=== PATIENT | female | born 1990 | race Caucasian/White ===

== ENCOUNTER 2022-11-05 15:06 | Outpatient (CLI) | payer OTHER, SELFPAY ==
[2022-11-08 03:58] LABS: Progesterone 10.6 ng/mL (***)
== END 2022-11-05 15:07 | disposition home or self-care (01) ==
PROVIDERS: Visit Provider Student in an Organized Health Care Education/Training Program
DX: O20.0 Threatened abortion (principal); Z3A.00 Weeks of gestation of pregnancy not specified
CPT/HCPCS: 36415; 84144; 84702; 86850; 86900; 86901

== ENCOUNTER 2022-11-07 10:23 | Outpatient (CLI) | payer OTHER, SELFPAY ==
[2022-11-11 03:55] LABS: Progesterone 10.4 ng/mL (***)
== END 2022-11-07 10:24 | disposition home or self-care (01) ==
LOC: ANHLAB 10:25
PROVIDERS: Visit Provider Student in an Organized Health Care Education/Training Program
DX: O20.0 Threatened abortion (principal); Z3A.00 Weeks of gestation of pregnancy not specified
CPT/HCPCS: 36415; 84144

== ENCOUNTER 2022-11-11 09:16 | Outpatient (CLI) | payer OTHER, SELFPAY | END 2022-11-11 09:17 | disposition home or self-care (01) | LOC: ANHLAB 09:19 | PROVIDERS: Visit Provider Student in an Organized Health Care Education/Training Program | DX: O20.0 Threatened abortion (principal) | CPT/HCPCS: 36415; 84702 ==

== ENCOUNTER 2022-11-27 11:42 | Outpatient (CLI) | payer OTHER, SELFPAY ==
[2022-11-27 12:14] LABS: Basophils Absolute Auto 0.1 K/mm3 (0.0-0.1); Basophils Percent Auto 0.5 % (0.2-1.2); Eosinophils Absolute Auto 0.1 K/mm3 (0-0.3); Eosinophils Percent Auto 1.4 % (0-4.4); Hematocrit 37.8 % (37.0-47.0); Hemoglobin 12.9 g/dL (12.0-15.0); Immature Granulocyte Absolute 0.06 K/mm3 (0.00-0.031); Immature Granulocyte Percent A 0.7 % (0-0.5); Lymphocytes Absolute Auto 2.28 K/mm3 (0.9-3.2); Mean Corpuscular HGB Conc 34.1 g/dl (32-36); Mean Corpuscular Hemoglobin 31.9 pg (26-34); Mean Corpuscular Volume 93.3 fl (80-100); Monocytes Absolute Auto 0.4 K/mm3 (0.1-0.6); Monocytes Percent Auto 4.3 % (2.6-8.5); Neutrophils Absolute Auto 6.2 K/mm3 (1.3-6.7); Neutrophils Percent Auto 68.1 % (45.5-73.1); Platelet Count Result 219 k/mm3 (150-375); Red Blood Count 4.05 M/mm3 (4.2-5.4); Red Cell Distribution Width 12.7 % (11.5-14.5); White Blood Count 9.1 K/mm3 (4.5-10.0)
[2022-11-27 12:58] LABS: Hepatitis B Surface Antigen Negative (Negative)
[2022-11-27 13:05] LABS: HIV 1/2 Ab P24 Ag Result Negative (Negative)
[2022-11-28 13:22] LABS: Rapid Plasma Reagin Non-Reactive (NonReactive)
[2022-12-01 08:54] LABS: CMV IgG Antibody <0.60 U/mL (<0.60)
[2022-12-09 19:55] LABS: CF Result NEGATIVE (NEGATIVE); Ethnicity W
[2022-12-10 14:15] LABS: SMA 2.0 RISK VARIANT NOT DETECTED
[2022-12-15 15:10] LABS: SMA Results Received Yes
== END 2022-11-27 11:43 | disposition home or self-care (01) ==
PROVIDERS: PCP Internal Medicine; Visit Provider Obstetrics & Gynecology
DX: Z34.90 Encounter for supervision of normal pregnancy, unspecified, unspecified trimester (principal)
CPT/HCPCS: 36415; 81220; 81329; 85025; 86592; 86644; 86703; 86747; 86762; 86787; 86850; 86900; 86901; 87086; 87088; 87340; G0432

== ENCOUNTER 2022-12-05 23:32 | Emergency (ER) | payer OTHER, SELFPAY ==
[2022-12-05 23:38] VITALS: BP 143/89; PULSE 113; RESP 14; TEMP 36.9; O2SAT 100
[2022-12-06 01:14] VITALS: BP 130/81; PULSE 102; RESP 20; TEMP 36.8; O2SAT 100
[2022-12-06 02:29] LABS: Basophils Percent Auto 0.5 % (0.2-1.2); Eosinophils Absolute Auto 0.1 K/mm3 (0-0.3); Eosinophils Percent Auto 1.3 % (0-4.4); Hematocrit 35.7 % (37.0-47.0); Hemoglobin 12.3 g/dL (12.0-15.0); Immature Granulocyte Absolute 0.02 K/mm3 (0.00-0.031); Immature Granulocyte Percent A 0.2 % (0-0.5); Lymphocytes Absolute Auto 1.64 K/mm3 (0.9-3.2); Lymphocytes Percent Auto 19.5 % (18.3-44.2); Mean Corpuscular HGB Conc 34.5 g/dl (32-36); Mean Corpuscular Hemoglobin 32.1 pg (26-34); Mean Corpuscular Volume 93.2 fl (80-100); Mean Platelet Volume 10.1 fl (7.4-10.4); Monocytes Absolute Auto 0.6 K/mm3 (0.1-0.6); Monocytes Percent Auto 7.1 % (2.6-8.5); Neutrophils Percent Auto 71.4 % (45.5-73.1); Platelet Count Result 201 k/mm3 (150-375); Red Blood Count 3.83 M/mm3 (4.2-5.4); Red Cell Distribution Width 12.7 % (11.5-14.5); White Blood Count 8.4 K/mm3 (4.5-10.0)
[2022-12-06 03:00] VITALS: BP 106/62; PULSE 82; RESP 18; O2SAT 100
--- NOTE | 2022-12-06 03:15 | ED.GENADULT ---
HPI - General Adult General Chief complaint: Vaginal Bleeding Stated complaint: 10 weeks peg, vag bleeding Time Seen by Provider: 12/06/22 01:23 History of Present Illness HPI narrative: Patient 32-year-old female who presents to Emergency Department with a chief complaint of vaginal bleeding. Patient reports that she is currently approximately 10 weeks and started having bleeding this evening patient states that she used a tampon and also had to use a pad the patient reports that this is her first and she passed told that she has a subchorionic hemorrhage. Patient states she believes she is Rh+ Related Data Home Medications Medication Instructions Recorded Confirmed ferrous sulfate 220 mg (44 mg 110 mg PO DAILY 11/26/22 iron)/5 mL oral elixir vitamin-ferrous fumarate 1 cap PO DAILY 11/26/22 65 mg iron-folic acid 1 mg capsule Allergies Allergy/AdvReac Type Severity Reaction Status Date / Time amoxicillin Allergy Mild Rash Verified 12/06/22 01:19 Review of Systems Review of Systems: A 10 system review of systems was completed on the patient and is negative except for what is stated in the HPI. Nursing and ancillary documentation was reviewed. [facility] Past Medical History Medical History Abnormal Pap smear of cervix 07/04/13 ASCUS , +HPV Frequent headaches HPV in female Vertigo Surgical History Surgical History History of colposcopy with cervical biopsy (07/20/13) LGSIL, MINH I Family History Family History Grandparent Heart disease maternal grandfather Diabetes mellitus maternal grandfather Social History Social History Smoking status: Never smoker Alcohol intake: former Alcohol use details: 2 per month Substance use: former Substance use type: does not use and marijuana Last use: 09/2022 Living arrangements: other Additional living arrangements comments: Occupation/Education: 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 HEAD: Normocephalic, atraumatic. EYES: PERRLA and EOMI. ENT: Nares clear, no rhinorrhea or epistaxis. Mucous membranes moist. NECK: Supple. CHEST: Clear to auscultation. No respiratory distress. HEART: Regular rate and rhythm. No murmur heard. Normal peripheral pulses. ABDOMEN: Soft, nontender, nondistended, normal active bowel sounds. EXTREMITIES: Normal range of motion. No edema. : There is a small amount of blood in the vaginal vault the cervix is closed SKIN: Warm, dry, no rash. NEURO: No focal deficits. Alert and oriented x3. PSYCH: Normal mood and affect. Course Vital Signs Vital signs: Vital Signs Temperature 36.9 C 12/05/22 23:38 Pulse Rate 113 H 12/05/22 23:38 Respiratory Rate 14 12/05/22 23:38 Blood Pressure 143/89 H 12/05/22 23:38 Pulse Oximetry 100 12/05/22 23:38 Oxygen Delivery Room Air 12/05/22 23:38 Temperature 36.8 C 12/06/22 01:14 Pulse Rate 102 H 12/06/22 01:14 Respiratory Rate 20 12/06/22 01:14 Blood Pressure 130/81 12/06/22 01:14 Pulse Oximetry 100 12/06/22 01:14 Oxygen Delivery Room Air 12/05/22 23:38 Procedures Other Procedure Procedure 1: Other Procedure: Bedside limited ultrasound was performed by me using transabdominal technique the intrauterine was visualized positive cardiac activity was present Medical Decision Making MDM Narrative Medical decision making narrative: Differential diagnosis include mis
[2022-12-06 03:45] VITALS: BP 112/72; PULSE 86; RESP 16; O2SAT 100
== END 2022-12-06 04:15 | disposition home or self-care (01) ==
PROVIDERS: Emergency Provider Emergency Medicine; PCP Obstetrics & Gynecology
DX: O20.0 Threatened abortion (principal); Z3A.10 10 weeks gestation of pregnancy
CPT/HCPCS: 36415; 84702; 85025; 85461; 86850; 86900; 86901; 99283

== ENCOUNTER 2023-04-14 07:51 | Outpatient (CLI) | payer OTHER, SELFPAY ==
[2023-04-14 09:54] LABS: Hematocrit 34.8 % (37.0-47.0); Hemoglobin 11.5 g/dL (12.0-15.0); Mean Corpuscular Hemoglobin 32.7 pg (26-34); Mean Corpuscular Volume 98.9 fl (80-100); Mean Platelet Volume 10.5 fl (7.4-10.4); Platelet Count Result 186 k/mm3 (150-375); Red Blood Count 3.52 M/mm3 (4.2-5.4); Red Cell Distribution Width 13.4 % (11.5-14.5); White Blood Count 9.1 K/mm3 (4.5-10.0)
[2023-04-14 09:59] LABS: Glucose 1 Hour PP 50gm Dose 131 mg/dL
[2023-04-14 10:42] LABS: HIV 1/2 Ab P24 Ag Result Negative (Negative)
== END 2023-04-14 07:52 | disposition home or self-care (01) ==
PROVIDERS: PCP Obstetrics & Gynecology; Visit Provider Student in an Organized Health Care Education/Training Program
DX: Z34.90 Encounter for supervision of normal pregnancy, unspecified, unspecified trimester (principal)
CPT/HCPCS: 36415; 82947; 85027; 86703; G0432

== ENCOUNTER 2023-06-02 17:55 | Inpatient (IN) | payer OTHER, SELFPAY ==
[2023-06-02] VITALS (13 sets, daily range): BP systolic 95–126; BP diastolic 54–90; PULSE 87–109; TEMP 36.4; BMI 32.4
[2023-06-02] MEDS: BETAMETHASONE SOD PHOS/ACETATE 30 MG/5 ML VIAL 12 MG IM (19:10)
[2023-06-02 19:33] LABS: Basophils Percent Auto 0.3 % (0.2-1.2); Eosinophils Absolute Auto 0.1 K/mm3 (0-0.3); Eosinophils Percent Auto 0.8 % (0-4.4); Hematocrit 35.4 % (37.0-47.0); Hemoglobin 11.9 g/dL (12.0-15.0); Immature Granulocyte Absolute 0.09 K/mm3 (0.00-0.031); Immature Granulocyte Percent A 0.8 % (0-0.5); Lymphocytes Absolute Auto 1.74 K/mm3 (0.9-3.2); Lymphocytes Percent Auto 15.2 % (18.3-44.2); Mean Corpuscular HGB Conc 33.6 g/dl (32-36); Mean Corpuscular Hemoglobin 32.2 pg (26-34); Mean Corpuscular Volume 95.9 fl (80-100); Mean Platelet Volume 10.4 fl (7.4-10.4); Monocytes Absolute Auto 0.5 K/mm3 (0.1-0.6); Monocytes Percent Auto 4.5 % (2.6-8.5); Neutrophils Percent Auto 78.4 % (45.5-73.1); Platelet Count Result 202 k/mm3 (150-375); Red Blood Count 3.69 M/mm3 (4.2-5.4); White Blood Count 11.5 K/mm3 (4.5-10.0)
[2023-06-02] MEDS: ceFAZolin 2 GM/D5W 50 ML 2 GM/50 ML BAG IVPB (19:53)
[2023-06-02] MEDS: LACTATED RINGERS 1,000 ML 125 ML IV CONT (19:54)
--- NOTE | 2023-06-02 20:18 | WPDANESEPPF ---
Anes - Initial Pre Proc Eval Procedure: Labor epidural Date/Time: 06/02/23 20:18 Surgeon: Bob Correa MD Pre Op Diagnosis: Labor pain Pre Op Diagnosis: Leaking Patient Data Age: 33 Gender: F Height: 1.57 m Weight: 80.5 kg Last Vital Signs Pulse 98 06/02/23 19:44 BP 121/90 06/02/23 19:44 O2 Del Method Room Air 06/02/23 19:31 Allergies Allergy/AdvReac Type Severity Reaction Status Date / Time amoxicillin Allergy Mild Rash Verified 06/01/23 10:15 Home Medications Medication Instructions Recorded Confirmed Type ferrous sulfate 220 mg (44 mg 110 mg PO DAILY 11/26/22 06/02/23 History iron)/5 mL oral elixir vitamin-ferrous fumarate 1 cap PO DAILY 11/26/22 06/02/23 History 65 mg iron-folic acid 1 mg capsule aspirin 81 mg tablet,delayed 81 mg PO DAILY 12/24/22 06/02/23 History release Laboratory Tests 06/02/23 06/02/23 19:20 19:21 WBC 11.5 H K/mm3 (4.5-10.0) RBC 3.69 L M/mm3 (4.2-5.4) Hgb 11.9 L g/dL (12.0-15.0) Hct 35.4 L % (37.0-47.0) MCV 95.9 fl (80-100) MCH 32.2 pg (26-34) MCHC 33.6 g/dl (32-36) RDW 13.0 % (11.5-14.5) Plt Count 202 k/mm3 (150-375) MPV 10.4 fl (7.4-10.4) Immature Gran % (Auto) 0.8 H % (0-0.5) Neut % (Auto) 78.4 H % (45.5-73.1) Lymph % (Auto) 15.2 L % (18.3-44.2) [place] % (Auto) 4.5 % (2.6-8.5) Eos % (Auto) 0.8 % (0-4.4) Baso % (Auto) 0.3 % (0.2-1.2) Lymph # (Auto) 1.74 K/mm3 (0.9-3.2) [place] # (Auto) 0.5 K/mm3 (0.1-0.6) Eos # (Auto) 0.1 K/mm3 (0-0.3) Baso # (Auto) 0.0 K/mm3 (0.0-0.1) Abs Immat Gran (auto) 0.09 H K/mm3 (0.00-0.031) Absolute Neuts (auto) 9.0 H K/mm3 (1.3-6.7) Absolute Nucleated RBC 0.0 K/mm3 (0.0-0.012) Nucleated RBC % 0.0 % (0.0-0.2) RPR Pending Blood Type O Positive Antibody Screen Negative Patient hx anesthesia problems: none Family hx anesthesia problems: none Results Review: All pre-operative results and documents have been reviewed as part of the pre-operative evaluation. [facility] Past Medical History Medical History Abnormal Pap smear of cervix 07/04/13 ASCUS , +HPV Frequent headaches HPV in female Vertigo Surgical History Surgical History History of colposcopy with cervical biopsy (07/20/13) LGSIL, MINH I Family History Family History Grandparent Heart disease maternal grandfather Diabetes mellitus maternal grandfather Social History Social History Smoking status: Never smoker Second hand tobacco smoke exposure: Yes Alcohol intake: former Alcohol use details: 2 per month Substance use: never Substance use type: does not use and marijuana Last use: 09/2022 Lack of Transportation: No Lack of Food: Never True Current Housing: I Have Housing Concerned About Future Housing: No Difficulty Paying Gas/Electric Bills: No Difficulty Paying for Meds: No Currently Unemployed: No Education: Associate Degree Difficulty w/ Childcare or Family Care: No Living arrangements: other Additional living arrangements comments: Occupation/Education: occupation 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
[2023-06-02] MEDS: OXYTOCIN 30 UNITS/NS 500 ML 30 UNITS/500 ML BAG IV CONT (22:12)
[2023-06-03] VITALS (205 sets, daily range): BP systolic 91–144; BP diastolic 46–95; PULSE 58–128; TEMP 36.3–37.1; O2SAT 87–100
[2023-06-03] MEDS: LACTATED RINGERS 1,000 ML 125 ML IV CONT ×3 (03:46→16:19)
[2023-06-03] MEDS: ceFAZolin 1 GM/NS 50 ML 1 GM/50 ML BAG IVPB ×3 (03:46→20:19)
[2023-06-03] MEDS: BETAMETHASONE SOD PHOS/ACETATE 30 MG/5 ML VIAL 12 MG IM (07:40)
--- NOTE | 2023-06-03 08:38 | WPDHPUPDATE1 ---
History and Physical Update Update Date/Time: 06/03/23 08:38 33-year-old who presents at 35 weeks 2 days with premature rupture of membranes. Patient denied any regular contractions. She denied any abdominal pain, fevers, chills, abnormal discharge. She reports good movement. History and Physical has been reviewed, including an updated exam of the patient. There are NO changes in the patient's condition. Risks, benefits, and alternatives have been discussed and questions answered. Patient agrees to proceed with procedure. A/P: Admit to Labor and delivery Routine admission orders Rh positive GBS unknown, will initiate antibiotics Will administer betamethasone for lung maturity Continuous external monitoring Will augment with Pitocin
[2023-06-03 15:38] LABS: Rapid Plasma Reagin Non-Reactive (NonReactive)
[2023-06-03] MEDS: AZITHROMYCIN 250 MG TABLET 1000 MG PO (16:53)
--- NOTE | 2023-06-03 20:43 | PM.OBPRVD ---
OB - Delivery Note Procedure Procedure: Patient pushed for a spontaneous vaginal delivery. A loose nuchal x1 was noted and delivered through. The fetus was delivered atraumatically and placed on the maternal abdomen. The cord was clamped and cut after 1 minute of life. The cord was double clamped and cut and a segment of cord was collected for cord gases. Cord blood was collected for blood type and Coomb's testing. The placenta delivered spontaneously and was noted to be intact. The perineum was inspected and there was a 1st degree perineal laceration. The laceration was repaired with 3-0 vicryl in the usual fashion. The uterus was firm and good hemostasis was noted. The patient and fetus were stable in the delivery room. Events: Premature Rupture of Membranes Induction method: None Delivery augmentation: Pitocin Delivery monitor: External FHT Route of delivery: Episiotomy description: None Laceration Description: Perineal - 1st Degree Delivery repair: vicryl Specimen: No Quantitative Blood Loss (ml): 150 Anesthesia type: Epidural Disposition: Floor () Complications: No immediate complications [place] Baby Date of : 06/03/23 Time of : 20:31 Weeks of gestation at delivery: 35 Infant gender: Male presentation: vertex position: Right Occiput Anterior Placenta delivery description: Spontaneous Cord Vessel Description: 3 Vessels, Nuchal Cord, Loose and Delayed Cord Clamping score one minute: 9 score five minutes: 9 AMG Delivery Billing Delivery Delivery: Delivery Charge
[2023-06-03] MEDS: OXYTOCIN 30 UNITS/NS 500 ML 30 UNITS/500 ML BAG 125 UNITS IV CONT (21:09)
[2023-06-04 00:15] VITALS: BP 105/58; PULSE 73
[2023-06-04 01:11] VITALS: BP 107/61; PULSE 76; RESP 196; TEMP 36.7
[2023-06-04 05:18] LABS: Hematocrit 32.9 % (37.0-47.0); Hemoglobin 10.8 g/dL (12.0-15.0)
[2023-06-04 07:40] VITALS: BP 108/73; PULSE 88; RESP 16; TEMP 37.7; O2SAT 100
--- NOTE | 2023-06-04 08:17 | WPDANLDPN2 ---
Anes-Prog Note L&D Date/Time: 06/04/23 08:17 Comfortable throughout: labor and delivery Neuraxial method: epidural Epidural/Spinal procedure site: clean & non-tender Neuro status: Neuro function grossly intact. Cardiovascular status: normal Respiratory status: normal Airway patency: baseline Mental status: baseline Post-Op hydration status: normal Vital Signs: Last Vital Signs Temp 36.7 C 06/04/23 01:11 Pulse 76 06/04/23 01:11 Resp 196 H 06/04/23 01:11 BP 107/61 06/04/23 01:11 Pulse Ox 97 06/03/23 20:29 O2 Del Method Room Air 06/02/23 19:31 Pain score (VAS): 0/10 I/O: Intake & Output 06/03/23 06/04/23 06/04/23 23:59 07:59 15:59 Intake Total 1500 500 Output Total 150 Balance 1350 500 Post-procedural complaints: none Patient feedback: Patient satisfied with anesthetic care.
[2023-06-04] MEDS: MULTIVIT/MIN/PREN/FOL AC/IRON TABLET 1 TAB PO (08:28)
--- NOTE | 2023-06-04 08:28 | PM.OBPNVD ---
OB - PN: Subj Subjective Date/time seen: 06/04/23 08:28 Patient comments: no complaints, pain well controlled and tolerating diet [place] feeding status: exclusively breast feeding Narrative: patient doing well this AM. No complaints. Pain is well controlled. She reports minimal bleeding. She is ambulating and voiding without difficulty. She is tolerating PO. She denies N/V, fever, chills. OB - PN: Obj Data Labs 06/04/23 04:14 Labs: Laboratory Results - last 24 hr 06/02/23 06/04/23 19:21 04:14 Hgb 10.8 L Hct 32.9 L RPR Non-reactive OB - PN A/P Plan day: 1 Plan: routine care Comments: patient doing well afebrile, VSS H/H stable patient requesting circumcision. Risks, benefits, alternatives discussed. Maternal consent obtained. continue routine care Time Spent With Patient Time: Total time spent is greater than 50% in coordination of care (as documented) at patient's floor/unit and/or counseling patient: Time with patient: less than 15 minutes Review of Systems Review of Systems: All systems reviewed & are unremarkable except as noted in HPI and below Exam Const: General: comfortable and no acute distress Resp: Effort & Inspection: normal respiratory effort Cardio: Rate: regular rate GI: GI Palp: Yes Soft to palpation and No Tenderness to palpation present (GI) Auscultation: normal bowel sounds Other: fundus firm and below umbilicus. Psych: Affect: normal affect
--- NOTE | 2023-06-04 09:53 | PC.NURSE ---
[id number] Introductions were made, then consulted with patient to assess needs related to . Mother is pumping her breast at this time and Analy RN is bottle feeding infant. Mother states that it hurts a bit and the flanges appear small for her breast. We switch to 27mm flanges and mother states it is more comfortable. Instructions given on cleaning, care, usage, that there should be no pain, pumping schedule for milk production, collection, and storage of human milk. Parents are encouraged to record pumping schedule on the feeding sheet. Patient was assessed for correct placement, flange size, to pump for comfort and nipple stretching/stimulation for adequate milk production every 3 hours (8 times in 24 hours) 1-2 times at night. Mother voiced understanding of the education shared along with mom and baby guide for additional resource information. Resources provided for inpatient and outpatient services with the feeding sheet, mom/baby guide and name written on the white board. Mother voiced understanding of information and will call if there is a request for assistance. Reported to the Primary RN.
--- NOTE | 2023-06-04 10:36 | PM.OBDSVD ---
DS: Admitting Diagnosis Discharge Date 06/05/23 Admitting Diagnosis premature rupture of membranes intrauterine DS: Discharge Diagnosis Discharge Diagnosis (1) premature rupture of membranes (PPROM) delivered, current hospitalization: Code(s): O42.919 - premature rupture of membranes, unspecified as to length of time between rupture and onset of labor, unspecified trimester Status: Acute (2) Normal vaginal delivery: Code(s): O80 - Encounter for full-term uncomplicated delivery Status: Acute OB - DS: Summary OB Procedures : None OB Procedures Intrapartum: Spontaneous Vag Delivery OB Procedures: : None Status at Discharge Functional status at discharge: independent ambulation Overall status at discharge: patient is back to baseline Time Spent with Patient Time attestation: Total time spent providing and/or coordinating discharge services: Time spent: Less than 30 minutes Exam Const: General: comfortable and no acute distress Resp: Effort & Inspection: normal respiratory effort Auscultation: clear to auscultation bilaterally Cardio: Rate: regular rate GI: GI Palp: Yes Soft to palpation Auscultation: normal bowel sounds Other: Fundus firm below umbilicus Psych: Appearance: grossly normal Mental Status: mental status grossly normal Affect: normal affect DS: Data Data Completed and Pending Pending studies at discharge: Pending at discharge 06/03/23 21:00 Surgical [PTH] Routine Labs on day of discharge: Labs from last 24 hours 06/04/23 06/02/23 04:14 19:21 Hgb 10.8 L Hct 32.9 L RPR Non-reactive Discharge Plan Discharge Discharging Clinician: Bob Correa Patient Disposition: Home, Self-Care Activity: as tolerated and pelvic rest Diet: regular Patient Instructions: Antibiotic Form, Vaginal Delivery (DC) Stand Alone Forms: General Discharge Information Follow-up/Referrals: Bob Correa MD [Physician] - Discharge Medications: New acetaminophen 500 mg tablet 500 mg PO Q6H PRN (Reason: pain) Qty: 30 0RF ibuprofen 600 mg tablet 600 mg PO Q6H PRN (Reason: pain) Qty: 30 0RF Continued vit-iron fum-folic ac 65 mg iron- 1 mg capsule 1 cap PO DAILY ferrous sulfate 220 mg (44 mg iron)/5 mL elixir 110 mg PO DAILY Discontinued aspirin 81 mg tablet,delayed release (DR/EC) 81 mg PO DAILY Date of admission: 06/02/23 17:55 Primary Care Provider: Aguila Crenshaw Admitting Provider: Bob Correa Attending physician on admission: Bob Correa Condition: Stable
[2023-06-04 12:08] VITALS: BP 106/66; PULSE 93; RESP 16; TEMP 37.1; O2SAT 99
[2023-06-04 20:00] VITALS: BP 109/77; PULSE 81; RESP 18; TEMP 36.7; O2SAT 98
[2023-06-05 08:00] VITALS: BP 110/71; PULSE 92; RESP 18; TEMP 36.8; O2SAT 100
[2023-06-05] MEDS: DOCUSATE SODIUM 100 MG CAPSULE PO (09:38)
[2023-06-05] MEDS: MULTIVIT/MIN/PREN/FOL AC/IRON TABLET 1 TAB PO (09:38)
[2023-06-05] MEDS: MEASLES,MUMPS,RUBELLA VACCINE 0.5 ML VIAL SUB-Q (15:20)
--- NOTE | 2023-06-05 15:30 | PC.NURSE ---
MOTHER NO CARE BED
[2023-06-07 10:40] VITALS: BP 121/78; PULSE 88; RESP 20; TEMP 37.4
== END 2023-06-05 15:30 | disposition home or self-care (01) | DRG 805 ==
LOC: ANHLDR 18:45 → ANHOB2 06-04 00:49
PROVIDERS: Admitting Provider Student in an Organized Health Care Education/Training Program; PCP Obstetrics & Gynecology; Visit Provider Student in an Organized Health Care Education/Training Program
DX: O42.913 Preterm premature rupture of membranes, unspecified as to length of time between rupture and onset of labor, third trimester (principal); O60.14X0 Preterm labor third trimester with preterm delivery third trimester, not applicable or unspecified; Z37.0 Single live birth; O69.81X0 Labor and delivery complicated by cord around neck, without compression, not applicable or unspecified; O70.0 First degree perineal laceration during delivery; Z3A.35 35 weeks gestation of pregnancy; Z67.90 Unspecified blood type, Rh positive; Z23 Encounter for immunization
CPT/HCPCS: 36415; 84112; 85014; 85018; 85025; 86592; 86850; 86900; 86901; 88307; 90471; 90686; 90710; A9270; G0008; J0690; J0702; J2590; J2795; J7120

== ENCOUNTER 2024-01-26 09:43 | Outpatient (CLI) | payer OTHER, SELFPAY ==
[2024-01-26 11:29] LABS: Basophils Percent Auto 0.5 % (0.2-1.2); Eosinophils Absolute Auto 0.1 K/mm3 (0-0.3); Eosinophils Percent Auto 1.8 % (0-4.4); Hematocrit 42.1 % (37.0-47.0); Hemoglobin 13.7 g/dL (12.0-15.0); Immature Granulocyte Absolute 0.02 K/mm3 (0.00-0.031); Immature Granulocyte Percent A 0.3 % (0-0.5); Lymphocytes Absolute Auto 1.55 K/mm3 (0.9-3.2); Lymphocytes Percent Auto 25.7 % (18.3-44.2); Mean Corpuscular HGB Conc 32.5 g/dl (32-36); Mean Corpuscular Hemoglobin 30.6 pg (26-34); Mean Corpuscular Volume 94.2 fl (80-100); Mean Platelet Volume 10.8 fl (7.4-10.4); Monocytes Absolute Auto 0.4 K/mm3 (0.1-0.6); Neutrophils Absolute Auto 3.9 K/mm3 (1.3-6.7); Neutrophils Percent Auto 64.7 % (45.5-73.1); Platelet Count Result 183 k/mm3 (150-375); Red Blood Count 4.47 M/mm3 (4.2-5.4); Red Cell Distribution Width 13.2 % (11.5-14.5)
[2024-01-26 11:47] LABS: Alanine Aminotransferase 15 U/L (6-35); Albumin Level 4.5 g/dL (3.5-5.1); Alkaline Phosphatase 64 U/L (38-126); Anion Gap 6 mmol/L (4-12); Aspartate Amino Transferase 20 U/L (14-36); Bilirubin,Total 0.5 mg/dL (0.2-1.3); Blood Urea Nitrogen 11 mg/dL (7-17); Calcium 9.3 mg/dL (8.4-10.2); Carbon Dioxide 28 mmol/L (22-30); Chloride 106 mmol/L (98-107); Cholesterol 127 mg/dL (0-200); Estimated Glomerular Filt Rate > 60; Glucose 82 mg/dL (65-110); HDL Direct 59 mg/dL; Potassium 4.2 mmol/L (3.4-5.0); Sodium 140 mmol/L (137-145); Triglycerides 37 mg/dL (<150)
[2024-01-26 11:59] LABS: LDL Cholesterol Direct 61 mg/dL
[2024-01-26 12:25] LABS: Vitamin D 25 Hydroxy 43.5 ng/mL
[2024-01-26 12:26] LABS: Hemoglobin A1C 5.1 % (<5.7)
== END 2024-01-26 09:44 | disposition home or self-care (01) ==
LOC: ANHLAB 09:45
PROVIDERS: PCP Internal Medicine; Visit Provider Nurse Practitioner
DX: E55.9 Vitamin D deficiency, unspecified (principal); Z13.220 Encounter for screening for lipoid disorders; Z13.29 Encounter for screening for other suspected endocrine disorder; Z83.3 Family history of diabetes mellitus
CPT/HCPCS: 36415; 80053; 80061; 82306; 83036; 85025